=== PATIENT | female | born 1985 | race Caucasian/White ===

== ENCOUNTER 2017-05-09 08:00 | Inpatient (IN) | payer BC ==
[~2017-05-09] VITALS: Ht 170.2 cm; Wt 78.9 kg
[2017-05-09] MEDS ORDERED: LR 1,000 ML IV SCH (08:35)
[2017-05-09] MEDS ORDERED: LR 1,000 ML IV ONE (08:35)
[2017-05-09] MEDS ORDERED: OXYTOCIN/NORMAL SALINE 1,000 ML IV SCH ×2 (08:35→19:13)
[2017-05-09] MEDS ORDERED: TERBUTALINE SULFATE 1 MG/ML VIAL SUBCUT ONE (08:45)
[2017-05-09] MEDS ORDERED: NALBUPHINE HCL 10 MG/ML AMP IVP PRN (08:45)
[2017-05-09] MEDS ORDERED: ROPIVACAINE 0.2% 100 ML ONE (09:07)
[2017-05-09 09:20] LABS: BASOPHILS % (AUTO) 0.5 % (0.0-2.0); EOSINOPHILS # (AUTO) 0.1 K/uL (0.0-0.4); EOSINOPHILS % (AUTO) 0.9 % (0.0-4.0); HEMATOCRIT 36.2 % (36-48); HEMOGLOBIN 11.4 g/dL (12.0-16.0); LYMPHOCYTES # (AUTO) 1.2 K/uL (1.0-5.5); LYMPHOCYTES % (AUTO) 19.4 % (20.5-51.5); MEAN CORPUSCULAR HEMOGLOBIN 25 pg (27-31); MEAN CORPUSCULAR HGB CONC 31 % (32-36); MEAN CORPUSCULAR VOLUME 79 fL (79.0-98.0); MONOCYTES # (AUTO) 0.4 K/uL (0.0-1.0); MONOCYTES % (AUTO) 6.2 % (1.7-9.3); NEUTROPHILS # (AUTO) 4.4 K/uL (1.8-7.7); PLATELET COUNT (AUTO) 266 K/uL (130-430); RED BLOOD CELL COUNT(AUTO) 4.61 MIL/uL (4.2-6.2); RED CELL DISTRIBUTION WIDTH 15.6 % (9.0-15.0); WHITE BLOOD COUNT (AUTO) 6.1 K/uL (4.8-10.8)
[2017-05-09] MEDS ORDERED: fentaNYL CITRATE/PF 100 MCG/2 ML AMP ONE (10:17)
[2017-05-09] MEDS ORDERED: LR 500 ML IV ONE (10:39)
[2017-05-09] MEDS ORDERED: FENT2mCg/mL-ROPIVA0.2%/NS EPID 150 ML EP SCH (10:45)
[2017-05-09 12:18] VITALS: BP_SYST 120
[2017-05-09] MEDS ORDERED: OXYTOCIN/NORMAL SALINE 1,000 ML IV ONE (19:13)
[2017-05-09] MEDS ORDERED: DOCUSATE SODIUM 100 MG CAPSULE PO PRN (19:15)
[2017-05-09] MEDS ORDERED: LANOLIN 7 GM OINT. TP PRN (19:15)
[2017-05-09] MEDS ORDERED: ANUSOL 1 EA SUPP.RECT (PREPARATION H) RC PRN (19:15)
[2017-05-09] MEDS ORDERED: MEASLES,MUMPS&RUBELLA VACC/PF 12500 UNIT/0.5 ML VIAL SUBQ PRN (19:15)
[2017-05-09] MEDS ORDERED: GLYCERIN/WITCH HAZEL (TUCKS PADS) TP PRN (19:15)
[2017-05-09] MEDS ORDERED: OXYCODONE/ACETAMINOPHEN 5-325 TABLET PO PRN ×2 (19:15)
[2017-05-09] MEDS ORDERED: RHO(D) IMMUNE GLOBULIN/MALTOSE 1500 UNITS/1.3 ML (WINHRO) IM PRN (19:15)
[2017-05-09] MEDS ORDERED: DIPH-TET-PERTUS Vaccine 0.5 ML VIAL (ADACEL) I.M. PRN (19:15)
[2017-05-09] MEDS ORDERED: METHYLERGONOVINE MALEATE 0.2 MG TABLET PO PRN (19:15)
[2017-05-09] MEDS ORDERED: ACETAMINOPHEN 325 MG TABLET PO PRN (19:15)
[2017-05-09] MEDS ORDERED: DERMOPLAST SPRAY TP PRN (19:15)
[2017-05-09] MEDS ORDERED: HYDROCORTISONE 0.5%, 28.35 GM TOPICAL CREAM TP PRN (19:15)
[2017-05-09] MEDS ORDERED: SENNOSIDES/DOCUSATE SODIUM 1 TAB TABLET(SENOKOT-S) PO PRN (19:15)
[2017-05-09] MEDS ORDERED: IBUPROFEN 600 MG TABLET ONE (19:25)
[2017-05-09] MEDS: IBUPROFEN 600 MG TABLET PO SCH ×2 (19:25→23:40)
[2017-05-09] MEDS ORDERED: TEMAZEPAM 15 MG CAPSULE PO PRN (21:00)
[2017-05-10] MEDS: IBUPROFEN 600 MG TABLET PO SCH ×2 (06:15→12:10)
[2017-05-10 07:02] LABS: HEMATOCRIT 33.6 % (36-48); HEMOGLOBIN 10.7 g/dL (12.0-16.0)
[2017-05-10] MEDS ORDERED: MINERAL OIL 30 ML UDC PO ONE (13:18)
[2017-05-10] MEDS ORDERED: NS 100 ML BAG IV ONE (13:20)
[2017-05-10] MEDS ORDERED: ROPIVACAINE 40 MG/20 ML AMP EP ONE (13:20)
[2017-05-11] MEDS: IBUPROFEN 600 MG TABLET PO SCH ×2 (05:44)
== END 2017-05-11 10:00 | disposition home or self-care (01) | DRG 775 ==
LOC: SPU 08:00
PROVIDERS: ADMIT Obstetrics & Gynecology; ATTEND Obstetrics & Gynecology
PROC: 10E0XZZ Delivery of Products of Conception, External Approach (ICD-10-PCS; principal; 2017-05-09)
PROC: 3E0R3BZ Introduction of Anesthetic Agent into Spinal Canal, Percutaneous Approach (ICD-10-PCS; 2017-05-09)
PROC: 00HU33Z Insertion of Infusion Device into Spinal Canal, Percutaneous Approach (ICD-10-PCS; 2017-05-09)
DX: O80 Encounter for full-term uncomplicated delivery (principal); Z37.0 Single live birth; Z3A.38 38 weeks gestation of pregnancy
CPT/HCPCS: 36415; 81002-TC; 85018-TC; 85025; 86592; 86886; 86900; 86901; J2590; J2795; J3010; J7120

== ENCOUNTER 2017-05-12 15:37 | Emergency (ER) | payer BC ==
[~2017-05-12] VITALS: Ht 170.2 cm; Wt 75.3 kg
[2017-05-12 15:49] VITALS: BP_SYST 135
[2017-05-12] MEDS ORDERED: NACL 0.9% 1,000 ML IV ONE (18:15)
[2017-05-12 19:22] VITALS: BP_SYST 114
== END 2017-05-12 19:22 | disposition home or self-care (01) ==
LOC: SED 15:37
DX: O89.4 Spinal and epidural anesthesia-induced headache during the puerperium (principal)
CPT/HCPCS: 99284; J7030